=== PATIENT | female | born 1995 | race Caucasian/White ===

== ENCOUNTER 2021-12-01 22:02 | Emergency (ER) | payer MEDICAID ==
[~2021-12-01] VITALS: Ht 152.4 cm; Wt 88.2 kg
[2021-12-01] MEDS ORDERED: ZOLOFT 100MG100 MG PO (22:23)
[2021-12-01] MEDS ORDERED: CARNITOR330 MG PO (22:23)
[2021-12-01] MEDS ORDERED: DEPAKOTE DR500 MG PO (22:24)
[2021-12-01] MEDS ORDERED: OMEPRAZOLE40 MG PO (22:24)
[2021-12-01] MEDS ORDERED: CLONIDINE HYDR0.1 MG PO (22:24)
[2021-12-01] MEDS ORDERED: ADDERALL XR15 MG PO (22:24)
[2021-12-01] MEDS ORDERED: FERROUS SULFAT325 M4 PO (22:25)
[2021-12-01] MEDS ORDERED: LEVOTHYROXIN0.025 MG PO (22:25)
[2021-12-01] MEDS ORDERED: CLARITIN LIQUI-10 MG PO (22:25)
[2021-12-01] MEDS ORDERED: DAYSEE PO (22:25)
[2021-12-01] MEDS ORDERED: AMOXICILLIN 50500 MG PO (22:51)
[2021-12-01] MEDS ORDERED: MECLIZINE PO (22:51)
[2021-12-01 23:02] VITALS: BP 100/69
== END 2021-12-01 23:02 | disposition home or self-care (01) ==
LOC: ED 22:02
DX: R42 Dizziness and giddiness (principal); H65.92 Unspecified nonsuppurative otitis media, left ear; R51.9 Headache, unspecified